=== PATIENT | male | born 2000 | race Caucasian/White ===

== ENCOUNTER 2023-05-28 18:38 | Emergency (ER) | payer BC, SELFPAY ==
[2023-05-28 18:45] VITALS: BP 134/78; PULSE 79; RESP 18; TEMP 36.4; O2SAT 99
--- NOTE | 2023-05-28 19:25 | ED.GENADULT ---
HPI - General Adult General Chief complaint: Abdominal Pain Stated complaint: numbness in legs Time Seen by Provider: 05/28/23 19:03 History of Present Illness HPI narrative: This is a 22-year-old male presenting for an episode of feeling wierd. patient was driving home from work when he said that he developed tight feeling in his eyes, tingling in his feet, dry and felt like his reflexes were slowed. He then came to hospital for evaluation. His symptoms have since resolved. Patient states that he has been under a significant stress at work. He also notes that he does not get very much sleep at night. He denies a history of anxiety but has been prescribed sertraline in the past. Patient is currently asymptomatic and has no other complaints. Related Data Allergies Allergy/AdvReac Type Severity Reaction Status Date / Time diphenhydramine AdvReac Intermediate Nightmares Verified 05/28/23 18:39 [From Benadryl] PMFSH Past Medical History Medical History ADHD (attention deficit hyperactivity disorder) Apnea BMI 23.0-23.9, adult Family history of hemochromatosis Family History Family History Father Arthritis Diabetes mellitus History of closed fracture Hypertension Hyperlipidemia Mother Liver disease Hemochromatosis Grandparent Hemochromatosis Carriers. Sibling Diabetes mellitus Social History Social History Smoking status: Never smoker Second hand tobacco smoke exposure: No Alcohol intake: never Substance use: never Substance use type: does not use Do You Feel Safe in your Home?: Yes Lack of Transportation: No Lack of Food: Never True Current Housing: I Have Housing Concerned About Future Housing: No Difficulty Paying Gas/Electric Bills: No Difficulty Paying for Meds: No Currently Unemployed: No Education: High School Diploma/GED Difficulty w/ Childcare or Family Care: No Living arrangements: with family Occupation/Education: occupation Additional occupation/education comments: [employer] - [employer]. Gender identity (if verbalized by the patient): Male Exam Narrative: APPEARANCE: anxious. Head: atraumatic. EYES: EOMI, NOSE: Atraumatic NECK: Trachea midline RESPIRATORY: No increased rate of breathing CTAB CARDIOVASCULAR: RRR, No peripheral edema ABDOMINAL: Non-distended soft nontender MUSCULOSKELETAl: No obvious deformities NEURO: Alert. Cranial nerves 2-12 grossly intact. Sensation light touch, motor function cerebellar function intact for 4 extremities. Gait exam was normal. SKIN:: Warm, dry. Normal color PSYCHIATRIC: Normal affect Course Vital Signs Vital signs: Vital Signs Temperature 97.6 F 05/28/23 18:45 Pulse Rate 79 05/28/23 18:45 Respiratory Rate 18 05/28/23 18:45 Blood Pressure 134/78 05/28/23 18:45 Pulse Oximetry 99 05/28/23 18:45 Oxygen Delivery Room Air 05/28/23 18:45 Temperature 97.6 F 05/28/23 18:45 Pulse Rate 79 05/28/23 18:45 Respiratory Rate 18 05/28/23 18:45 Blood Pressure 134/78 05/28/23 18:45 Pulse Oximetry 99 05/28/23 18:45 Oxygen Delivery Room Air 05/28/23 18:45 Medical Decision Making [facility] Narrative Medical decision making narrative: -Course: 22-year-old male presenting after an episode of various complaints including dry mouth, tinglig in his feet and feeling off. Presentation most consistent with a stress reaction/anxiety On my evaluation he is asymptomatic. He has stable vital signs and no physical exam findings. Patient is comfortable following up with pcp. -DDX includes but is not limited to: anxiety, stress reaction -Co-morbidities complicating care: ADHD -Social determinants of health: patient works at [employer] denies use of drugs or alcohol -
[2023-05-28 19:49] VITALS: BP 113/64; PULSE 64; O2SAT 98
== END 2023-05-28 20:07 | disposition home or self-care (01) ==
PROVIDERS: Emergency Provider Emergency Medicine; PCP Family Medicine
DX: F43.9 Reaction to severe stress, unspecified (principal); F90.9 Attention-deficit hyperactivity disorder, unspecified type
CPT/HCPCS: 99281

== ENCOUNTER 2023-09-20 18:19 | Emergency (ER) | payer OTHER, BC, SELFPAY ==
--- NOTE | ~2023-09-20 | XR_ITS ---
EXAM: XR shoulder LT min 2V DATE: 09/20/2023 18:55 HISTORY: injury at work . COMPARISON: None available. FINDINGS: Normal mineralization. No fracture or dislocation. No lytic or blastic lesion. Joint space s are maintained. No erosion or periosteal change. Soft tissues within normal limits. IMPRESSION: No acute osseous finding the left shoulder. Reviewed, dictated and finalized at location K.
[2023-09-20 18:23] VITALS: BP 107/66; PULSE 84; RESP 20; TEMP 36.7; O2SAT 98
--- NOTE | 2023-09-20 20:27 | ED.UPPEXIN ---
HPI - Extremity Injury (Upper) General Chief Complaint: Extremity Injury, Upper Stated Complaint: L SHOULDER WORK INJURY Time Seen by Provider: 09/20/23 20:17 History of Present Illness HPI narrative: this is a 22-year-old male, no significant past medical history, who presents to the emergency department complaining of left shoulder pain. The patient states earlier today, he was attempting to open a door forcefully, when it did not move, resulting in sharp 4/10 pain in left shoulder. He states this gradually improved. He denies chest pain, shortness of breath, redness swelling, fevers, loss of sensation/ strength in the arm or cyanosis. He has no other complaints at this time. Related Data Allergies Allergy/AdvReac Type Severity Reaction Status Date / Time diphenhydramine AdvReac Intermediate Nightmares Verified 09/20/23 18:23 [From Benadryl] Review of Systems Review of Systems: All systems reviewed & are unremarkable except as noted in HPI and below PMFSH Past Medical History Medical History ADHD (attention deficit hyperactivity disorder) Apnea BMI 23.0-23.9, adult Family history of hemochromatosis Family History Family History Father Arthritis Diabetes mellitus History of closed fracture Hypertension Hyperlipidemia Mother Liver disease Hemochromatosis Grandparent Hemochromatosis Carriers. Sibling Diabetes mellitus Social History Social History Smoking status: Never smoker Second hand tobacco smoke exposure: No Alcohol intake: never Substance use: never Substance use type: does not use Do You Feel Safe in your Home?: Yes Lack of Transportation: No Lack of Food: Never True Current Housing: I Have Housing Concerned About Future Housing: No Difficulty Paying Gas/Electric Bills: No Difficulty Paying for Meds: No Currently Unemployed: No Education: High School Diploma/GED Difficulty w/ Childcare or Family Care: No Living arrangements: with family Occupation/Education: occupation Additional occupation/education comments: [employer] - [employer]. Gender identity (if verbalized by the patient): Male Exam Narrative: GENERAL: Well-developed, well-nourished, and in no acute distress. HEAD: Normocephalic, atraumatic. EYES: PERRLA and EOMI. CHEST: Clear to auscultation. No respiratory distress. No wheezes rales or rhonchi HEART: Regular rate and rhythm. No murmur heard. Normal peripheral pulses. ABDOMEN: Soft, nontender, nondistended, normal active bowel sounds. EXTREMITIES: no tenderness to palpation over the anterior, lateral or posterior aspect of the left shoulder. No noted deformity.Normal range of motion of all extremities. No edema. SKIN: Warm, dry, no rash. NEURO: Alert and oriented x3. No focal deficit. Moving all 4 limbs spontaneously PSYCH: Normal mood and affect. Course Course Emergency Course: 20:27 - X-ray of the shoulder is not concerning for fracture or dislocation. The patient's exam is not concerning for infection or neurovascular compromise. Will discharge with recommendation for Tylenol and ibuprofen, home PT exercises and primary care follow-up. I discussed the findings and recommendations with the patient. Discussed return and emergency precautions including signs/symptoms of neurovascular compromise and septic arthritis. The patient voiced understanding and agreement with the plan. All questions answered to his satisfaction. Vital Signs Vital signs: Vital Signs Temperature 98.0 F 09/20/23 18:23 Pulse Rate 84 09/20/23 18:23 Respiratory Rate 20 09/20/23 18:23 Blood Pressure 107/66 09/20/23 18:23 Pulse Oximetry 98 09/20/23 18:23 Oxygen Delivery Room Air 09/20/23 18:23 Temperature 98.0 F 09/20/23 18:23 Pulse R
== END 2023-09-20 20:40 | disposition home or self-care (01) ==
PROVIDERS: Emergency Provider Preventive Medicine Aerospace Medicine; PCP Family Medicine
DX: S46.912A Strain of unspecified muscle, fascia and tendon at shoulder and upper arm level, left arm, initial encounter (principal); F90.9 Attention-deficit hyperactivity disorder, unspecified type; X50.0XXA Overexertion from strenuous movement or load, initial encounter
CPT/HCPCS: 73030; 99283

== ENCOUNTER 2023-11-19 12:34 | Emergency (ER) | payer BC, SELFPAY ==
--- NOTE | ~2023-11-19 | US_ITS ---
EXAMINATION: US venous doppler [facility] DATE: 11/19/2023 13:39 INDICATION: Left lower limb pain and swelling TECHNIQUE: Grayscale ultrasound images without and with compression and Doppler ultrasound images of the left lower extremity veins were obtained. COMPARISON: None. FINDINGS: The visualized portions of left common femoral vein, profunda (deep) femoral vein, femoral vein, popl iteal vein, peroneal veins, posterior tibial veins, gastrocnemius vein and greater saphenous vein out flow are patent. IMPRESSION: 1. No deep venous thrombosis in the left lower limb. Reviewed, dictated and finalized at location A.
--- NOTE | ~2023-11-19 | XR_ITS ---
Left foot Technique: AP, oblique, and lateral views were obtained. Clinical History: Pain and swelling Findings: No acute fracture or dislocation is seen. Osseous alignment is anatomic. Joint spaces are p reserved without erosive or degenerative change. Soft tissues are unremarkable. Impression: Unremarkable left foot radiographs. Reviewed, dictated and finalized at [facility]. Impression: Unremarkable left foot radiographs.
--- NOTE | ~2023-11-19 | XR_ITS ---
Left ankle Technique: AP, oblique, and lateral views were obtained. Clinical History: Pain Findings: No acute fracture or dislocation is seen. Osseous alignment is anatomic. Ankle mortise and other visualized joint spaces are preserved. Soft tissues are otherwise unremarkable. Impression: Unremarkable left ankle. Reviewed, dictated and finalized at location . Impression: Unremarkable left ankle.
[2023-11-19 12:43] VITALS: BP 132/70; PULSE 71; RESP 16; TEMP 36.3; O2SAT 100
--- NOTE | 2023-11-19 13:17 | ED.EXTPRO ---
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 He reports his left lower extremity started hurting last night. Patient denies injury to the extremity. He reports the pain has increasingly worsened over the last 24 hours. Patient any medical history, although his mother and grandmother both have had blood clots and he is unsure if they have factor 5 Leiden. He endorses pain with any movement of his left lower extremity. GENERAL: Well-appearing, well-nourished, and in mild acute distress d/t LLE pain. HEAD: Normocephalic, atraumatic. CHEST: Clear to auscultation. ?No respiratory distress. HEART: Regular rate and rhythm.? NEURO: ?Alert and oriented x3. Increased pain with LLE flexion, extension, and toe wiggling. Patient screened in triage and initial orders placed.? ?Additional care and disposition to be based upon?diagnostic testing and treatment. <Filomena Miller APRN - Last Filed: 11/19/23 13:26> Related Data Allergies/Adverse reactions: Allergies Allergy/AdvReac Type Severity Reaction Status Date / Time diphenhydramine AdvReac Intermediate Nightmares Verified 11/19/23 12:37 [From Benadryl] <Filomena Miller APRN - Last Filed: 11/19/23 13:26> Review of Systems Review of Systems: All systems reviewed & are unremarkable except as noted in HPI and below <Juan Robins MD - Last Filed: 11/19/23 14:30> PMFSH Past Medical History Medical History: Medical History ADHD (attention deficit hyperactivity disorder) Apnea BMI 23.0-23.9, adult Family history of hemochromatosis <Filomena Yecenia Miller, RADIOLOGY THERAPIST - Last Filed: 11/19/23 13:26> Family History Family History: Family History Father Arthritis Diabetes mellitus History of closed fracture Hypertension Hyperlipidemia Mother Liver disease Hemochromatosis Grandparent Hemochromatosis Carriers. Sibling Diabetes mellitus <Filomena Yecenia Miller, RADIOLOGY THERAPIST - Last Filed: 11/19/23 13:26> Social History Social History: Social History Smoking status: Never smoker Second hand tobacco smoke exposure: No Alcohol intake: never Substance use: never Substance use type: does not use Do You Feel Safe in your Home?: Yes Lack of Transportation: No Lack of Food: Never True Current Housing: I Have Housing Concerned About Future Housing: No Difficulty Paying Gas/Electric Bills: No Difficulty Paying for Meds: No Currently Unemployed: No Education: High School Diploma/GED Difficulty w/ Childcare or Family Care: No Living arrangements: with family Occupation/Education: occupation Additional occupation/education comments: [employer] - [place] [employer]. Gender identity (if verbalized by the patient): Male <Filomena Yecenia Miller, RADIOLOGY THERAPIST - Last Filed: 11/19/23 13:26> Exam Narrative: GENERAL: Well-developed, well-nourished, and in no acute distress. HEAD: Normocephalic, atraumatic. EYES: PERRLA and EOMI. CHEST: Clear to auscultation. No respiratory distress. No wheezes rales or rhonchi HEART: Regular rate and rhythm. No murmur heard. Normal peripheral pulses. EXTREMITIES: Tender to palpation over the distal aspect of the 2nd and 3rd metatarsals, without step-off, crepitus or overlying erythema/ecchymosis. Normal range of motion of all extremities. No edema. SKIN: Warm, dry, no rash. NEURO: Alert and oriented x3. No focal deficit. Moving all 4 limbs spontaneously PS
[2023-11-19] MEDS: HYDROcodone/acetaminophen (*CRX) 5-325 MG TABLET 1 TAB PO (13:37)
[2023-11-19 14:08] LABS: Basophils Absolute Auto 0.1 K/mm3 (0.0-0.1); Basophils Percent Auto 1.5 % (0.2-1.2); Eosinophils Absolute Auto 0.1 K/mm3 (0-0.3); Eosinophils Percent Auto 1.5 % (0-4.4); Hematocrit 40.7 % (42.0-52.0); Hemoglobin 14.2 g/dL (14.0-18.0); Immature Granulocyte Absolute 0.03 K/mm3 (0.00-0.031); Immature Granulocyte Percent A 0.6 % (0-0.5); Lymphocytes Absolute Auto 1.25 K/mm3 (0.9-3.2); Lymphocytes Percent Auto 26.1 % (18.3-44.2); Mean Corpuscular HGB Conc 34.9 g/dl (32-36); Mean Corpuscular Hemoglobin 30.3 pg (26-34); Mean Platelet Volume 10.3 fl (7.4-10.4); Monocytes Absolute Auto 0.5 K/mm3 (0.1-0.6); Monocytes Percent Auto 10.2 % (2.6-8.5); Neutrophils Absolute Auto 2.9 K/mm3 (1.3-6.7); Neutrophils Percent Auto 60.1 % (45.5-73.1); Platelet Count Result 255 k/mm3 (150-375); Red Blood Count 4.68 M/mm3 (4.6-6.20); Red Cell Distribution Width 12.8 % (11.5-14.5); White Blood Count 4.8 K/mm3 (4.5-10.0)
[2023-11-19 14:15] LABS: Uric Acid 6.9 mg/dL (3.5-8.5)
[2023-11-19 14:21] LABS: Alanine Aminotransferase 18 U/L (6-50); Albumin Level 4.8 g/dL (3.5-5.1); Alkaline Phosphatase 63 U/L (38-126); Anion Gap 10 mmol/L (4-12); Aspartate Amino Transferase 25 U/L (17-59); Bilirubin,Total 3.5 mg/dL (0.2-1.3); Blood Urea Nitrogen 14 mg/dL (9-20); Calcium 9.9 mg/dL (8.4-10.2); Carbon Dioxide 26 mmol/L (22-30); Chloride 103 mmol/L (98-107); Estimated CRCL calculation 103 ml/min; Estimated Glomerular Filt Rate > 60; Glucose 97 mg/dL (65-110); Potassium 4.1 mmol/L (3.4-5.0); Sodium 139 mmol/L (137-145)
[2023-11-19 14:22] LABS: Lactic Acid Reflex 0.7 mmol/L (0.7-2.0)
[2023-11-19 14:33] VITALS: BP 126/80; PULSE 71; RESP 16; TEMP 36.6; O2SAT 100
== END 2023-11-19 14:35 | disposition home or self-care (01) ==
PROVIDERS: Registered Nurse; Emergency Provider Preventive Medicine Aerospace Medicine; PCP Family Medicine
DX: M79.672 Pain in left foot (principal); F90.9 Attention-deficit hyperactivity disorder, unspecified type; Z79.899 Other long term (current) drug therapy
CPT/HCPCS: 36415; 73610; 73630; 80053; 83605; 84550; 85025; 93971; 99284; A9270